=== PATIENT | female | born 1995 | race Caucasian/White ===

== ENCOUNTER 2018-10-12 00:07 | Emergency (ER) | payer OTHER ==
[~2018-10-12] VITALS: Ht 160 cm; Wt 127.2 kg
[~2018-10-12 00:07] MED LIST: NAPR-1154 PO
[2018-10-12 00:11] VITALS: BP 116/55
[2018-10-12] MEDS ORDERED: normal saline 1000ML IV soln IVB ONE (00:15)
[2018-10-12] MEDS ORDERED: albuterol 2.5 mg/0.5ml nebule NEB ONE (00:15)
[2018-10-12] MEDS ORDERED: methylPREDNISolone sod succ 125mg/2ml vial IV ONE (00:15)
[2018-10-12] MEDS ORDERED: albuterol 2.5 MG/3 ML nebule NEB ONE (00:15)
== END 2018-10-12 00:36 | disposition home or self-care (01) ==
LOC: ER 00:08
DX: R06.02 Shortness of breath (principal); Z53.21 Procedure and treatment not carried out due to patient leaving prior to being seen by health care provider
CPT/HCPCS: J2930; J7611